=== PATIENT | male | born 1965 | race Caucasian/White ===

== ENCOUNTER 2017-10-10 23:01 | Emergency (ER) | payer OTHER ==
[~2017-10-10] VITALS: Ht 180.3 cm; Wt 101.2 kg
[~2017-10-10 23:01] MED LIST: AMLODIPINE5 M1 PO; AUGMENTIN1 TA2 MT; CETIRIZINE10 MG PO; CIPRO 500MG TA500 MG PO; ENBREL50 MG/ML SC; GABAPENTIN300 MG PO; ISOSORBIDE MONO30 MG PO; KEFLEX 500MG.500 MG PO; KEFLEX500 M1 PO; LORATADINE 10MG10 M1 PO; LORTAB 5/500 501 TAB PO; PANTOPRAZOLE SO40 MG PO; SYMBICORT1 AE1 IH; VICODIN 5/500 T1 TAB PO; VOLTAREN75 MG PO; ZITHROMAX Z PA250 MG PO
--- OUTSIDE RECORDS SUMMARY | 2017-10-10 23:23 | External Medical Summary Rpt | CCD ---
Author Author Conduent Organization [employer]du[employer] Address Unknown Phone Unavailable Purpose Continuity of Care Document - through 2016
--- OUTSIDE RECORDS SUMMARY | 2017-10-10 23:23 | External Medical Summary Rpt | CCD ---
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 W55.11XA BITTEN BY HORSE, INITIAL ENCOUNTER Z48.02 ENCOUNTER FOR REMOVAL OF SUTURES Allergies, Adverse Reactions, Alerts Type Allergy to substance Drug Allergy Adverse Reaction to Substance Substance Reaction Severity INGREDIENT: NO KNOWN Unknown Unknown - NO KNOWN DRUG ALLERGY No Known Allergies - Unknown Mild Nka Medications Na ND Rx Da Fi Fi Am Da Di Ph RX Ph St me C No te ll ll ou ys ag ar # ys at rm s nt no ma ic us Or Da si cy ia de te s n re d CE 62 05 0 No PH 75 -0 AL 60 2- Lo EX 29 20 ng IN 48 13 er 8 50 Ac 0 ti MG ve CA PS UL E Vital Signs 03-01-2013 00:16 Name Value Interpretat Reference Comment ion Range BP 74 mm[Hg] Diastolic BP Systolic 134 mm[Hg] Heart 79 /min Rate/Pulse O2% 94 % Respiratory 20 /min Rate 02-28-2013 23:15 Name Value Interpretat Reference Comment ion Range BP 88 mm[Hg] Diastolic BP Systolic 138 mm[Hg] Heart 89 /min Rate/Pulse O2% 97 % Respiratory 20 /min Rate Encounters Encounter Start End Date Code Location Performer Type Date Emergency LEVY Wills MD (ER) 3 22:48 3 00:18 [facility]
--- OUTSIDE RECORDS SUMMARY | 2017-10-10 23:23 | External Medical Summary Rpt | CCD ---
Author Author , TANG Organization TANG Address Unknown Phone [email or web address] Care Team Providers [facility] [employer] Name Role Phone Alta Wills MD, Unavailable Unavailable Alta Wills MD Purpose Continuity of Care Document - 02-28-2013 through 2016 Problems Code Diagnosis DOS Provider Status 844.9 844.9 03-01-2013 Sammy SPRAIN OF [facility] KNEE & LEG [facility] NOS E849.3 E849.3 ACC 03-01-2013 Sammy ON INDUSTR [facility] E927.0 E927.0 03-01-2013 [facility]UD[facility] STRENUOUS MOV[facility] W55.11XA BITTEN BY HORSE, [...] Wills MD (ER) 3 22:48 3 00:18 [facility]
--- OUTSIDE RECORDS SUMMARY | 2017-10-10 23:24 | External Medical Summary Rpt | CCD ---
Author Author , TANG Organization TANG Address Unknown Phone [email or web address] Immunization Name Date Rout CVX Reac Dose Comm Prov Is Faci e tion ent ider Refu lity Give sed n Tdap 12-2 115 999 Hist H149 No H149 , 8-20 oric Adso 12 al rbed Info rmat ion - Sour ce Unsp ecif ied
--- OUTSIDE RECORDS SUMMARY | 2017-10-10 23:24 | External Medical Summary Rpt | CCD ---
Author Author , TANG Organization TANG Address Unknown Phone [email or web address] Immunization Name Date Rout CVX Reac Dose Comm Prov Is Faci e tion ent ider Refu lity Give sed n Tdap 12-2 115 999 Hist H149 No H149 , 8-20 oric Adso 12 al rbed Info rmat ion - Sour ce Unsp ecif ied
--- OUTSIDE RECORDS SUMMARY | 2017-10-10 23:24 | External Medical Summary Rpt ---
Author Author TANG Zhu, TANG Zhu Organization [employer] Address Unknown Phone Unavailable
[2017-10-11 00:18] VITALS: BP 131/95
--- NOTE | 2017-10-11 00:24 | Emergency Room Report ---
History of Present Illness Time Seen by MD Nayak Presenting Problem in Triage Pt arrived:Walked Presenting Problem:LEFT EYE RED AND HURTING, STATES FEELS LIKE SOMETHING IN IT. 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 N Clinical Suspician of Infection? N Mental Status: 1 - Regular (Normal Baseline) Sepsis Risk:Low Sepsis Risk Have you (or family members/close friends) recently traveled outside the [place]? N If Yes, where/when: Have you had exposure to infectious disease within the past month? N TB? Other? Specify: Source patient, RN notes reviewed, family, old records Exam Limitations no limitations Comment lt eye injected with fb sensation with no contacts over the last 2 days Cardiac Chest Pain Chest pain indicative of cardiac No Timing/Duration this evening Severity moderate ALLERGIES Coded Allergies: No Known Allergies (10/10/17) Home Medications Reported Medications Etanercept (Enbrel) 50 MG SC WEEKLY Amlodipine Besylate (Amlodipine) 5 MG PO DAILY BUDESONIDE/FORMOTEROL FUMARATE (Symbicort 160-4.5 Mcg Inhaler) 1 PUFF IH BID Cetirizine Hcl (Cetirizine HCl) 10 MG PO DAILY Pantoprazole Sodium (Pantoprazole 40MG) 40 MG PO DAILY Isosorbide Mononitrate (Isosorbide Mononitrate ER) 30 MG PO DAILY History Medical History General CAD? No Angina: Yes MS: No Hypertension? Yes Hyperlipidemia? Yes CHF? No DVT? No PE? No COPD? No Asthma? Yes Anemia? No GERD? No Gastric ulcers? No GI Bleed? No Hernia? Yes Thyroid Problems? No Hypothyroidism? No CVA? No Seizures? No Diabetes? No Renal Insuffiency? No End Stage Renal Disease? No UTI? No Stones? No GB Disease: No Nephritic Syndrome? No Asplenia? No Hepatitis? No Sickle Cell Disease? No Arthritis? Yes Migraines? No Cataracts? No Glaucoma? No MRSA? No HIV? No TB? No Anxiety? No Depression? No Cancer? Yes Site: LIP Immunization Hx DT/Tetanus 1-4 YRS Flu LAST YEAR Pneumonia NEVER Surgical Hx Previous Surgery?Y TUMOR REMOVAL LIP SINUS 2004 HEART CATH CYST FROM HEAD HERNIA X 2 MOUTH BX/SKIN GRAFT GROWTH REMOVAL FROM ABD Family History Family Hx Diabetes Yes CAD Yes Hypertension Yes Hyperlipidemia Yes Cancer Yes TB No Social History Smoking Hx Smoker: Never Smoker Tobacco: No Type Snuff Alcohol Alcohol: No Drugs none Review of Systems All Other Systems Reviewed and Negative Constitutional denies fever Eyes see HPI, foreign body sensation, glasses, denies drainage, denies contact lenses ENT denies: ear pain, epistaxis, throat pain. Respiratory denies cough, denies shortness of breath, denies wheezing Cardiovascular denies chest pain, denies syncope Gastrointestinal denies abdominal pain, denies diarrhea, denies vomiting Genitourinary denies: dysuria, frequency, hesitancy, hematuria. Musculoskeletal denies back pain, denies joint swelling, denies neck pain Skin denies rash Psychiatric/Neurological denies headache, denies seizure Physical Exam Vital Signs Vital Signs Date Time Temp Pulse Resp B/P Pulse O2 O2 Flow FiO2 Ox Delivery Rate 10/11 0018 86 18 131/95 99 10/10 2311 99.2 86 18 131/95 99 - WBC >12,000 or <4,000 or 10% bands? 2 or more SIRS Criteria Met? B/P:131/95 MAP:107 Creatinine >2.0? UA output<0.5ml/kg/hr for 2 hrs? Platelet count >100,000? Lactate >2.0mmol/1? INR >1.2 or PTT > than 60 sec? Evidence of Organ Dysfunction? Provider documented clinical suspician of infection? N Sepsis Criteria Count: 0 Sepsis Risk: Low Sepsis Risk General Appearance no apparent distress Eye Exam - left eye photophobia, bilateral eye PERRL, bilateral eye EOMI Comment neg stain Ear, Nose, Throat normal ENT inspection Neck supple Respiratory Status No: respiratory distress. 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 No Results/Orders Current Medication Orders Sig/Brittney Start time Last Medication Dose Route Stop Time Status Admin Fluorescein Sodium 1 EACH ONCE ONE 10/11 0030 AC OP 10/11 003 Neomycin/Polymyxin/ 3.5 GM ONCE ONE 10/11 30 AC Bacitracin OP 10/11 31 Tetracaine HCl See Dose ONCE ONE 10/11 30 AC Insts (1) OP 10/11 31 Miscellaneous 0 .STK-MED ONE 10/10 2305 DC XX Dose Instructions: (1)Tetracaine HCl: INSTILL IN AFFECTED EYE(S) PER INSTRUCTIONS Procedures Eye Procedure Eye Procedure Risks/benefits discussed with pt/guardian? Yes Tetracaine Drops Administered left eye Fluorescein Stick(s) Used left eye Slit lamp exam No Antibiotic Ointment/Drps Admin left eye Departure Departure Time of Disposition 0018 Disposition DC Home or Self Care(routine) Clinical Impression Primary Impression: Iritis of left eye Condition STABLE Referrals [facility] Patient Instructions DI for Conjunctivitis Additional Instructions see eye center in am Discharge Counseling Counseled pt/family regarding diagnosis, test results, follow up needs ED Critical Care Critical Care No at 0025
== END 2017-10-11 00:30 | disposition home or self-care (01) ==
LOC: ER 23:01
DX: H20.9 Unspecified iridocyclitis (principal)